=== PATIENT | female | born 1935 | race Caucasian/White ===

== ENCOUNTER 2018-03-01 12:22 | Emergency (ER) | payer OTHER ==
[2018-03-01] MEDS ORDERED: CLINDAMYCIN 600MG/D5W 600 MG/50 ML BAG IV ONE (14:40)
--- NOTE | 2018-03-01 15:03 | ER ---
Nurse's Notes [facility] Name: Jayleen Cross Age: 83 yrs Sex: Female : 1935 Arrival Date: 03/01/2018 Time: 12:26 Bed 26 Private MD: Randy Rutherford E Diagnosis: Acute serous otitis media, left ear;Mastoiditis and related conditions Presentation: 03/01 13:12 Presenting complaint: Patient states: i had been in earlier and found an ear problem, tw2 Dr. Rutherford's PA, he sent me for a scan and they told you to come to the ER for IV antibiotics. Transition of care: patient was not received from another setting of care. Onset of symptoms was March 01, 2018. Risk Assessment: Do you want to hurt yourself or someone else? Patient reports no desire to harm self or others. Initial Sepsis Screen: Does the patient meet any 2 criteria? No. Patient's initial sepsis screen is negative. Does the patient have a suspected source of infection? No. Patient's initial sepsis screen is negative. Care prior to arrival: None. 13:12 Method Of Arrival: Ambulatory tw2 13:12 Acuity: SEBASTIEN 4 tw2 13:12 Acuity: SEBASTIEN 3 tw2 Historical: - Allergies: 13:14 NKA; tw2 - Home Meds: 13:14 lisinopril Oral [Active]; Aspirin Oral [Active]; carvedilol Oral [Active]; Fluoxetine tw2 Oral [Active]; - PMHx: 13:14 Hypertension; tw2 - PSHx: 13:14 D \T\ C; tw2 - Immunization history:: Adult Immunizations up to date. - Social history:: Smoking status: Patient/guardian denies using tobacco. - Ebola Screening: : Patient denies travel to an Ebola-affected area in the 21 days before illness onset. Screenin:17 Abuse screen: Denies threats or abuse. Nutritional screening: No deficits noted. tl3 Tuberculosis screening: No symptoms or risk factors identified. Fall Risk None identified. Assessment: 13:17 General: Appears in no apparent distress. slender, well groomed, well developed, well tl3 nourished, Behavior is calm, cooperative, appropriate for age. Pain: Complains of pain in left ear. Neuro: Level of Consciousness is awake, alert, obeys commands, Oriented to person, place, time, situation, Appropriate for age. Cardiovascular: Patient's skin is warm and dry. Respiratory: Airway is patent Respiratory effort is even, unlabored, Respiratory pattern is regular, symmetrical. GI: No signs and/or symptoms were reported involving the gastrointestinal system. : No signs and/or symptoms were reported regarding the genitourinary system. EENT: Reports seen by PCP Dr Rutherford today had CT scan and called to come to ED for ABX treatment for possible Mastoiditis. Derm: No signs and/or symptoms reported regarding the dermatologic system. 15:23 Reassessment: Patient appears in no apparent distress at this time. No changes from tl3 previously documented assessment. Patient and/or family updated on plan of care and expected duration. Pain level reassessed. Patient is alert, oriented x 3, equal unlabored respirations, skin warm/dry/pink. abx infused without difficulty. Vital Signs: 13:13 BP 170 / 89; Pulse 78; Resp 17; Temp 98.0(O); Pulse Ox 98% ; Pain 0/10; tw2 13:35 BP 168 / 77 RA Sitting (auto/reg); Pulse 65; Resp 18 S; Pulse Ox 98% ; Pain 0/10; jp3 ED Course: 12:26 Patient arrived in ED. mr 12:26 out of town, doctor is Private Physician. mr 12:27 Randy Rutherford MD is Private Physician. mr 13:13 Triage completed. tw2 13:16 Saritha Mcghee, RN is Primary Nurse. tl3 13:17 Patient has correct armband on for positive identification. Bed in low position. Call tl3 light in reach. 13:17 No provider procedures requiring assistance completed. tl3 13:53 Inserted saline lock: 20 gauge in right antecubital area, using aseptic technique. tl3 14:04 Sung Beyer PA is PHCP. jr8 14:04 Ankit Chowdhury MD is Attending Physician. jr8 15:02 Roxy Gil MD is Referral Physician. jr8 15:23 IV discontinued, intact, bleeding controlled, No redness/swelling at site. Pressure tl3 dressing applied. 15:25 Arm band placed on. tl3 Administered Medications: 14:36 Not Given (order changed): Clindamycin 900 mg IVPB once over 30 mins; (mix in 50 mL) tl3 14:37 Drug: Clindamycin 600 mg Route: IVPB; Infused Over: 30 mins; Site: right antecubital; tl3 Delivery: Primary tubing; 15:24 Follow up: IV Status: Completed infusion; IV Intake: 50ml tl3 Intake: 15:24 IV: 50ml; Total: 50ml. tl3 Outcome: 15:02 Discharge ordered by MD. acuna 15:23 Discharged to home ambulatory. tl3 15:23 Condition: stable 15:23 Discharge instructions given to patient, Instructed on discharge instructions, follow up and referral plans. Demonstrated understanding of instructions, follow-up care, medications, Prescriptions given X 1. 15:25 Patient left the ED. tl3 Signatures: Liudmila Barboza Josh, PA PA jr8 Mendy Ch RN RN tw2 Saritha Mcghee RN RN tl3 Ronnie Mariee jp3
--- NOTE | 2018-03-01 15:04 | EDPHYS ---
Physician Documentation [facility] Name: Jayleen Cross Age: 83 yrs Sex: Female : 1935 Arrival Date: 03/01/2018 Time: 12:26 Bed 26 Private MD: Randy Rutherford E ED Physician Ankit Chowdhury HPI: 03/01 15:40 This 83 yrs old Female presents to ER via Ambulatory with complaints of Needs jr8 Antibiotics. 15:40 The patient presents with pain. The complaints affect the left ear. Onset: The jr8 symptoms/episode began/occurred gradually, 2 month(s) ago. Modifying factors: The symptoms are alleviated by nothing, the symptoms are aggravated by nothing. Associated signs and symptoms: The patient has no apparent associated signs or symptoms. Severity of symptoms: At their worst the symptoms were mild in the emergency department the symptoms are unchanged. The patient has not experienced similar symptoms in the past. The patient has been recently seen by a physician:. Patient stated that she has had an ongoing ear infection since this past January. Was sent for CT today to further assess area since she has had antibiotics without resolution. Patient was called and was told she had mastoiditis and to come to ED for one round of antibiotics. Patient denies pain, erythema, or tenderness to post auricular region . Historical: - Allergies: 13:14 NKA; tw2 - Home Meds: 13:14 lisinopril Oral [Active]; Aspirin Oral [Active]; carvedilol Oral [Active]; Fluoxetine tw2 Oral [Active]; - PMHx: 13:14 Hypertension; tw2 - PSHx: 13:14 D \T\ C; tw2 - Immunization history:: Adult Immunizations up to date. - Social history:: Smoking status: Patient/guardian denies using tobacco. - Ebola Screening: : Patient denies travel to an Ebola-affected area in the 21 days before illness onset. ROS: 15:40 Eyes: Negative for injury, pain, redness, and discharge, Neck: Negative for injury, jr8 pain, and swelling, Cardiovascular: Negative for chest pain, palpitations, and edema, Respiratory: Negative for shortness of breath, cough, wheezing, and pleuritic chest pain, Abdomen/GI: Negative for abdominal pain, nausea, vomiting, diarrhea, and constipation, Back: Negative for injury and pain, MS/Extremity: Negative for injury and deformity, Skin: Negative for injury, rash, and discoloration, Neuro: Negative for headache, weakness, numbness, tingling, and seizure. 15:40 ENT: Positive for ear pain, Negative for drainage from ear(s). jr8 Exam: 15:40 Eyes: Pupils equal round and reactive to light, extra-ocular motions intact. Lids and jr8 lashes normal. Conjunctiva and sclera are non-icteric and not injected. Cornea within normal limits. Periorbital areas with no swelling, redness, or edema. Neck: Trachea midline, no thyromegaly or masses palpated, and no cervical lymphadenopathy. Supple, full range of motion without nuchal rigidity, or vertebral point tenderness. No Meningismus. Cardiovascular: Regular rate and rhythm with a normal S1 and S2. No gallops, murmurs, or rubs. Normal PMI, no JVD. No pulse deficits. Respiratory: Lungs have equal breath sounds bilaterally, clear to auscultation and percussion. No rales, rhonchi or wheezes noted. No increased work of breathing, no retractions or nasal flaring. Abdomen/GI: Soft, non-tender, with normal bowel sounds. No distension or tympany. No guarding or rebound. No evidence of tenderness throughout. Back: No spinal tenderness. No costovertebral tenderness. Full range of motion. Skin: Warm, dry with normal turgor. Normal color with no rashes, no lesions, and no evidence of cellulitis. MS/ Extremity: Pulses equal, no cyanosis. Neurovascular intact. Full, normal range of motion. Neuro: Awake and alert, GCS 15, oriented to person, place, time, and situation. Cranial nerves II-XII grossly intact. Motor strength 5/5 in all extremities. Sensory grossly intact. Cerebellar exam normal. Normal gait. 15:40 ENT: External ear(s): are unremarkable, Ear canal(s): are normal, clear, TM's: fluid levels, on the left, dark serous fluid noted behind the ear. TM translucent and without erythema . Vital Signs: 13:13 BP 170 / 89; Pulse 78; Resp 17; Temp 98.0(O); Pulse Ox 98% ; Pain 0/10; tw2 13:35 BP 168 / 77 RA Sitting (auto/reg); Pulse 65; Resp 18 S; Pulse Ox 98% ; Pain 0/10; jp3 MDM: 14:04 Patient medically screened. jr8 15:01 Data reviewed: vital signs, nurses notes, diagnostic data from outside facility, and as jr8 a result, I will discharge patient. Data interpreted: Pulse oximetry: on room air is 98 %. Interpretation: normal. Counseling: I had a detailed discussion with the patient and/or guardian regarding: the historical points, exam findings, and any diagnostic results supporting the discharge/admit diagnosis, radiology results, the need for outpatient follow up, an ENT specialist, to return to the emergency department if symptoms worsen or persist or if there are any questions or concerns that arise at home. 15:40 ED course: Dr. Gil called and left message to call back. Recommended patient f/u jr8 with Dr. Gil for persistent otitis media. On physical exam no external signs of mastoiditis . Administered Medications: 14:36 Not Given (order changed): Clindamycin 900 mg IVPB once over 30 mins; (mix in 50 mL) tl3 14:37 Drug: Clindamycin 600 mg Route: IVPB; Infused Over: 30 mins; Site: right antecubital; tl3 Delivery: Primary tubing; 15:24 Follow up: IV Status: Completed infusion; IV Intake: 50ml tl3 Disposition: 03/01/18 15:02 Discharged to Home. Impression: Acute serous otitis media, left ear, Mastoiditis and related conditions. - Condition is Stable. - Discharge Instructions: Otitis Media, Adult. - Prescriptions for Clindamycin HCl 300 mg Oral Capsule - take 1 capsule by ORAL route every 6 hours for 10 days; 40 capsule. - Medication Reconciliation Form, Thank You Letter, Antibiotic Education, Prescription Opioid Use form. - Follow up: Roxy Gil MD; When: 5 - 6 days; Reason: Recheck today's complaints, Continuance of care, Re-evaluation by your physician. - Problem is new. - Symptoms have improved. Addendum: 03/08/2018 08:51 Co-signature as Attending Physician, Ankit Chowdhury MD I agree with the assessment and k dr plan of care. Signatures: Ankit Chowdhury MD MD [facility] Sung Beyer PA PA jr8 Mendy Ch RN RN tw2 Saritha Mcghee, RN RN tl3 Corrections: (The following items were deleted from the chart) 03/01 15:25 15:02 03/01/2018 15:02 Discharged to Home. Impression: Acute serous otitis media, left tl3 ear; Mastoiditis and related conditions. Condition is Stable. Forms are Medication Reconciliation Form, Thank You Letter, Antibiotic Education, Prescription Opioid Use. Follow up: Roxy Gil; When: 5 - 6 days; Reason: Recheck today's complaints, Continuance of care, Re-evaluation by your physician. Problem is new. Symptoms have improved. jr8
[2018-03-01 15:53] VITALS: TEMP 98; O2SAT 98
[2018-03-01 15:55] VITALS: BP 168/77
== END 2018-03-01 15:25 | disposition home or self-care (01) ==
LOC: ER 12:22
DX: H65.02 Acute serous otitis media, left ear (principal); H70.92 Unspecified mastoiditis, left ear; I10 Essential (primary) hypertension
CPT/HCPCS: 96365; 99283

== ENCOUNTER 2019-10-09 13:54 | Emergency (ER) | payer OTHER ==
[2019-10-09 14:55] LABS: Absolute Lymphocytes (CBC) 0.6 K/uL (0.7-4.9); Basophils % 0.1 % (0-1.3); Hematocrit 36.7 % (36.0-45.0); Lymphocytes % 1.9 % (15.3-44.8); RBC Red Blood Cell Count 4.58 M/uL (3.86-4.86)
[2019-10-09 15:17] LABS: Blood Morphology Comment NOT SEEN (NOT SEEN); Platelet Estimate ADEQ
[2019-10-09] MEDS ORDERED: NA CHLORIDE 0.9% 1,000 ML ONE ×3 (15:20→19:45)
[2019-10-09] MEDS ORDERED: ONDANSETRON 4 MG/2 ML VIAL ONE (15:20)
[2019-10-09 15:29] LABS: Albumin 2.8 g/dL (3.4-5.0); Bilirubin Direct 0.2 mg/dL (0-0.2); Bilirubin Total 0.7 mg/dL (0.2-1.0); Potassium 3.5 mmol/L (3.5-5.1); Protein, Total 7.5 g/dL (6.4-8.2)
--- NOTE | 2019-10-09 16:40 | RAD REPORT ---
EXAM DESCRIPTION: CT - Abdomen Pelvis Wo Contrast - 10/09/2019 4:13 pm CLINICAL HISTORY: Abdominal pain COMPARISON: none TECHNIQUE: Computed axial tomography of the abdomen and pelvis was obtained. IV and oral contrast we re not requested. All CT scans are performed using dose optimization technique as appropriate and may include automated exposure control or mA/KV adjustment according to patient size. FINDINGS: The evaluation of solid organs, vessels and bowel is limited secondary to the lack of con trast administration. Low-density hepatic lesions nonspecific without IV contrast probably cysts. Spleen, pancreas, adrenals and kidneys appear grossly normal. Air is present within the endometrium which extends towards the periphery of the uterus. There is ill -defined air which abuts the uterus and and cervix extends into right adnexal. Small amount of fluid is also present. A right inguinal hernia contains small bowel. There is mild dilatation of jejunum and most of ileum. There is no evidence of diverticulitis. IMPRESSION: Given the history of recent uterine instrumentation these findings may indicate a uterin e perforation. Mild dilatation of most of small bowel may be secondary to an obstruction in the region of the left i nguinal hernia
[2019-10-09] MEDS ORDERED: PIPER/TAZO/NS 3.375gm 3.375 GM/100 ML BAG ONE (16:48)
--- NOTE | 2019-10-09 16:59 | EDPHYS ---
Physician Documentation [facility] Name: Jayleen Cross Age: 84 yrs Sex: Female : 1935 Arrival Date: 10/09/2019 Time: 13:58 Bed 14 Private MD: ED Physician Jae Jama HPI: 10/08 15:09 This 84 yrs old Female presents to ER via Wheelchair with complaints of jr8 Vomiting. 15:09 The patient presents to the emergency department with nausea, vomiting. Onset: The jr8 symptoms/episode began/occurred acutely, yesterday. Possible causes: unknown. The symptoms are aggravated by nothing. The symptoms are alleviated by nothing. Associated signs and symptoms: The patient has no apparent associated signs or symptoms. Severity of symptoms: At their worst the symptoms were moderate in the emergency department the symptoms are unchanged. The patient has not experienced similar symptoms in the past. The patient has been recently seen by a physician:. Patient stated that she had cervical biopsy on Monday of this week. Has had some mild discomfort since then but now started to have multiple episodes of nausea and vomiting. Historical: - Allergies: 14:06 Codeine; ll1 - PMHx: 14:06 Hypertension; ll1 - PSHx: 14:06 D \T\ C; ll1 - Immunization history:: Flu vaccine is up to date. - Social history:: Smoking status: Patient denies any tobacco usage or history of. Patient/guardian denies using alcohol, street drugs. ROS: 15:09 Eyes: Negative for injury, pain, redness, and discharge, ENT: Negative for injury, jr8 pain, and discharge, Neck: Negative for injury, pain, and swelling, Cardiovascular: Negative for chest pain, palpitations, and edema, Respiratory: Negative for shortness of breath, cough, wheezing, and pleuritic chest pain, Back: Negative for injury and pain, MS/Extremity: Negative for injury and deformity, Skin: Negative for injury, rash, and discoloration, Neuro: Negative for headache, weakness, numbness, tingling, and seizure. 15:09 Abdomen/GI: Positive for nausea and vomiting, abdominal cramps, Negative for diarrhea. Exam: 15:09 Eyes: Pupils equal round and reactive to light, extra-ocular motions intact. Lids and jr8 lashes normal. Conjunctiva and sclera are non-icteric and not injected. Cornea within normal limits. Periorbital areas with no swelling, redness, or edema. ENT: Nares patent. No nasal discharge, no septal abnormalities noted. Tympanic membranes are normal and external auditory canals are clear. Oropharynx with no redness, swelling, or masses, exudates, or evidence of obstruction, uvula midline. Mucous membranes moist. Neck: Trachea midline, no thyromegaly or masses palpated, and no cervical lymphadenopathy. Supple, full range of motion without nuchal rigidity, or vertebral point tenderness. No Meningismus. Cardiovascular: Regular rate and rhythm with a normal S1 and S2. No gallops, murmurs, or rubs. Normal PMI, no JVD. No pulse deficits. Respiratory: Lungs have equal breath sounds bilaterally, clear to auscultation and percussion. No rales, rhonchi or wheezes noted. No increased work of breathing, no retractions or nasal flaring. Abdomen/GI: Soft, non-tender, with normal bowel sounds. No distension or tympany. No guarding or rebound. No evidence of tenderness throughout. Back: No spinal tenderness. No costovertebral tenderness. Full range of motion. Skin: Warm, dry with normal turgor. Normal color with no rashes, no lesions, and no evidence of cellulitis. MS/ Extremity: Pulses equal, no cyanosis. Neurovascular intact. Full, normal range of motion. Neuro: Awake and alert, GCS 15, oriented to person, place, time, and situation. Cranial nerves II-XII grossly intact. Motor strength 5/5 in all extremities. Sensory grossly intact. Cerebellar exam normal. Normal gait. 20:04 ECG was reviewed by the Attending Physician. [facility] Vital Signs: 14:04 BP 129 / 62; Pulse 88; Resp 18; Temp 98.3; Pulse Ox 97% ; Weight 67.59 kg; Height 5 ft. ll1 4 in. (162.56 cm); Pain 8/10; 15:31 BP 121 / 48; Pulse 82; Resp 16; Pulse Ox 99% on R/A; Pain 5/10; ls4 17:47 BP 121 / 48; Pulse 79; Resp 16; Pulse Ox 99% on R/A; Pain 0/10; ls4 19:00 BP 120 / 72; Pulse 149; Resp 30; Pulse Ox 99% on R/A; Pain 0/10; ls4 21:00 BP 127 / 52; Pulse 129; Resp 18; Pulse Ox 99% on R/A; ls4 21:30 BP 128 / 75; Pulse 124; Resp 18; Pulse Ox 99% on R/A; Pain 0/10; ls4 21:39 Pulse 115; Resp 16; Pulse Ox 99% on R/A; Pain 0/10; ls4 14:04 Body Mass Index 25.58 (67.59 kg, 162.56 cm) ll1 Procedures: 19:55 Central Line: the site was prepped with Betadine, in sterile fashion, a triple lumen shayy catheter was inserted, in the right femoral vein, in 1 attempts. placement was verified, by blood return, the site was dressed with using sterile technique, the patient tolerated the procedure, well. MDM: 14:27 Patient medically screened. jr8 15:37 Data reviewed: vital signs, nurses notes, lab test result(s), radiologic studies, CT jr8 scan. Data interpreted: Pulse oximetry: on room air is 99 %. Interpretation: normal. Counseling: I had a detailed discussion with the patient and/or guardian regarding: the historical points, exam findings, and any diagnostic results supporting the discharge/admit diagnosis, lab results, radiology results, the need for further work-up and treatment in the hospital. 20:02 Differential diagnosis: pancreatitis, appendicitis, diverticulitis, gastroenteritis. shayy Test interpretation: by ED physician or midlevel provider: ECG, plain radiologic studies. ED course: pt with acute abdomen, perforation of darvin. arf, a fib with rvr,upper gi bleed, leukocytosis. 10/08 14:28 Order name: Basic Metabolic Panel; Complete Time: 15:32 jr8 10/08 14:28 Order name: CBC with Diff; Complete Time: 15:23 jr8 10/08 14:28 Order name: Hepatic Function; Complete Time: 15:32 jr8 10/08 14:28 Order name: Lipase; Complete Time: 15:32 jr8 10/08 15:17 Order name: Manual Differential; Complete Time: 15:23 EDMS 10/08 17:09 Order name: Urine Microscopic Only; Complete Time: 18:24 ls4 10/08 18:59 Order name: Magnesium; Complete Time: 19:57 shayy 10/08 18:59 Order name: NT PRO-BNP; Complete Time: 19:57 [facility] 10/08 18:59 Order name: PT-INR; Complete Time: 06:38 [facility] 10/08 18:59 Order name: Troponin (emerg Dept Use Only); Complete Time: 19:57 [facility] 10/08 19:18 Order name: TSH; Complete Time: 19:57 [facility] 10/08 19:50 Order name: Type And Screen; Complete Time: 06:38 ls4 10/08 20:47 Order name: ABO/RH no charge; Complete Time: 06:38 EDMD 10/08 15:59 Order name: Abdomen ; Complete Time: 16:46 [facility] 10/08 18:59 Order name: XRAY Chest (1 view); Complete Time: 06:38 [facility] 10/08 14:28 Order name: IV Saline Lock; Complete Time: 15:04 [facility] 10/08 14:28 Order name: Labs collected and sent; Complete Time: 15:04 [facility] 10/08 14:30 Order name: Urine Dipstick-Ancillary (obtain specimen); Complete Time: 17:10 [facility] 10/08 16:20 Order name: NG Tube; Complete Time: 16:27 [facility] 10/08 18:59 Order name: IV Saline Lock - Large Bore; Complete Time: 20:09 [facility] 10/08 18:59 Order name: EKG; Complete Time: 19:00 [facility] 10/08 18:59 Order name: Cardiac monitoring; Complete Time: 19:02 [facility] 10/08 18:59 Order name: EKG - Nurse/Tech; Complete Time: 19:02 [facility] 10/08 18:59 Order name: O2 Per Protocol; Complete Time: 20:09 [facility] 10/08 18:59 Order name: O2 Sat Monitoring; Complete Time: 20:09 [facility] 10/08 19:00 Order name: Faulkner; Complete Time: 20:09 [facility] EC:04 Rate is 147 beats/min. Rhythm is irregularly irregular. QRS [place] is Normal. OK interval shayy is normal. QRS interval is normal. QT interval is normal. No Q waves. T waves are Normal. No ST changes noted. Clinical impression: Atrial Fibrillation. Interpreted by me. Reviewed by me. Administered Medications: 15:10 Drug: NS 0.9% 1000 ml Route: IV; Rate: 1000 ml; Site: right antecubital; ls4 15:10 Drug: Zofran (Ondansetron) 4 mg Route: IVP; Site: right antecubital; ls4 15:15 Follow up: Response: No adverse reaction; Marked relief of symptoms ls4 16:59 Drug: Zosyn 3.375 grams Route: IVPB; Infused Over: 60 mins; Site: right antecubital; ls4 17:49 Drug: NS 0.9% 1000 ml Route: IV; Rate: 100 ml/hr; Site: right antecubital; ls4 19:06 Drug: NS 0.9% 1000 ml Route: IV; Rate: 1 bolus; Site: right antecubital; ls4 19:19 Drug: Digoxin 0.5 mg Route: IVP; Site: right antecubital; ls4 19:19 Drug: Lopressor 2.5 mg Route: IVP; Site: right antecubital; ls4 19:24 Drug: Lopressor 2.5 mg Route: IVP; Site: right antecubital; ls4 19:29 Drug: Lopressor 2.5 mg Route: IVP; Site: right antecubital; ls4 20:00 Drug: ProTONIX 80 mg Route: IVP; Site: left antecubital; ls4 20:39 Follow up: Response: No adverse reaction; Marked relief of symptoms ls4 20:00 Drug: ProTONIX 8 mg/hr Route: IV; Rate: 25 ml/hr; Site: left antecubital; ls4 20:15 Drug: Flagyl 500 mg Volume: 100 ml; Route: IVPB; Rate: 200 ml/hr; Infused Over: 30 ls4 mins; Site: right antecubital; Disposition: 19:57 Co-signature as Attending Physician, Jae Jama MD I agree with the assessment and shayy plan of care. Disposition: 10/09/19 20:02 Transfer ordered to [facility]. Diagnosis are Abdominal tenderness, Elevated white blood cell count, Acute kidney failure, Gastrointestinal hemorrhage, unspecified - upper, Other intestinal obstruction - sbo, Inguinal hernia - left, Atrial fibrillation and flutter - with rvr, Perforation of intestine (nontraumatic). - Reason for transfer: Higher level of care. - Accepting physician is to [facility], [facility], [facility]. - Condition is Serious. - Problem is new. - Symptoms have improved. Critical care time excluding procedures: 21:05 Critical care time: Bedside Care: 45 minutes. Total time: 45 minutes shayy 21:05 Critical care time: Bedside Care: 45 minutes, Consultation: 15 minutes, Family shayy Intervention: 5 minutes. Total time: 65 minutes Signatures: Dispatcher [employer] Jae Lebron MD MD cha Mickail, Joel, PA PA jmm Roszak, Josh, PA PA jr8 Farrah Haji RN RN ls4 Leonidas Marino RN RN ll1 Corrections: (The following items were deleted from the chart) 15:59 15:24 Abdomen Pelvis W Con+CT.RAD.BRZ ordered. [facility] EDMD 19:58 16:59 Hospitalization Ordered by Young Pereyra MD for Inpatient Admission. Preliminary [facility] diagnosis is Acute kidney failure; Small bowel obstruction; Acute abdomen; Uterine Performation . Bed requested for Intensive Care Unit. Status is Inpatient Admission. Condition is Fair. Problem is new. Symptoms have improved. jr8 21:00 18:57 CORONAVIRUS+MR.LAB.BRZ ordered. [facility] 21:46 20:02 10/09/2019 20:02 Transfer ordered to [facility]. ls4 Diagnosis is Abdominal tenderness; Elevated white blood cell count; Acute kidney failure; Gastrointestinal hemorrhage, unspecified - upper; Other intestinal obstruction - sbo; Inguinal hernia - left; Atrial fibrillation and flutter - with rvr; Perforation of intestine (nontraumatic). Reason for transfer: Higher level of care. Accepting physician is to [facility], [facility]. Condition is Serious. Problem is new. Symptoms have improved. shayy
--- NOTE | 2019-10-09 16:59 | ER ---
Nurse's Notes [facility] Name: Jayleen Cross Age: 84 yrs Sex: Female : 1935 Arrival Date: 10/09/2019 Time: 13:58 Bed 14 Private MD: Diagnosis: Abdominal tenderness;Elevated white blood cell count;Acute kidney failure;Gastrointestinal hemorrhage, unspecified-upper;Other intestinal obstruction-sbo;Inguinal hernia-left;Atrial fibrillation and flutter-with rvr;Perforation of intestine (nontraumatic) Presentation: 10/08 14:04 Chief complaint: Patient states: N/V began last night. Had biopsy with Dr. Potts ll1 Monday, Dr. Potts sent her in for eval. Coronavirus screen: Client denies travel out of the [place] in the last 14 days. At this time, the client does not indicate any symptoms associated with coronavirus-19. Ebola Screen: Patient denies travel to an Ebola-affected area in the 21 days before illness onset. Initial Sepsis Screen: Does the patient meet any 2 criteria? No. Patient's initial sepsis screen is negative. Risk Assessment: Do you want to hurt yourself or someone else? Patient reports no desire to harm self or others. Onset of symptoms was October 08, 2019. 14:04 Method Of Arrival: Wheelchair ll1 14:04 Acuity: SEBASTIEN 3 ll1 14:19 Initial Sepsis Screen: Does the patient have a suspected source of infection? No. ls4 Patient's initial sepsis screen is negative. Triage Assessment: 14:18 General: Appears in no apparent distress. Behavior is calm, cooperative. Pain: Denies ls4 pain. GI: No deficits noted. Historical: - Allergies: 14:06 Codeine; ll1 - PMHx: 14:06 Hypertension; ll1 - PSHx: 14:06 D \T\ C; ll1 - Immunization history:: Flu vaccine is up to date. - Social history:: Smoking status: Patient denies any tobacco usage or history of. Patient/guardian denies using alcohol, street drugs. Screenin:12 Abuse screen: Denies threats or abuse. Denies injuries from another. Nutritional ls4 screening: No deficits noted. Tuberculosis screening: No symptoms or risk factors identified. Fall Risk None identified. Assessment: 15:05 GI: Abdomen is non-distended. ls4 Vital Signs: 14:04 BP 129 / 62; Pulse 88; Resp 18; Temp 98.3; Pulse Ox 97% ; Weight 67.59 kg; Height 5 ft. ll1 4 in. (162.56 cm); Pain 8/10; 15:31 BP 121 / 48; Pulse 82; Resp 16; Pulse Ox 99% on R/A; Pain 5/10; ls4 17:47 BP 121 / 48; Pulse 79; Resp 16; Pulse Ox 99% on R/A; Pain 0/10; ls4 19:00 BP 120 / 72; Pulse 149; Resp 30; Pulse Ox 99% on R/A; Pain 0/10; ls4 21:00 BP 127 / 52; Pulse 129; Resp 18; Pulse Ox 99% on R/A; ls4 21:30 BP 128 / 75; Pulse 124; Resp 18; Pulse Ox 99% on R/A; Pain 0/10; ls4 21:39 Pulse 115; Resp 16; Pulse Ox 99% on R/A; Pain 0/10; ls4 14:04 Body Mass Index 25.58 (67.59 kg, 162.56 cm) ll1 ED Course: 13:58 Patient arrived in ED. mr 14:05 Triage completed. ll1 14:06 Arm band placed on Patient placed in an exam room, on a stretcher. ll1 14:06 Patient has correct armband on for positive identification. Bed in low position. Call ls4 light in reach. Side rails up X 1. sheet sorter on. Pulse ox on. NIBP on. 14:11 Farrah Haji, AMY is Primary Nurse. ls4 14:27 Sung Beyer PA is PHCP. jr8 14:27 Ankit Chowdhury MD is Attending Physician. jr8 14:30 No provider procedures requiring assistance completed. Inserted saline lock: 20 gauge ls4 in right antecubital area, using aseptic technique. Blood collected. 14:30 Initial lab(s) drawn, by de, sent to lab. Patient maintains SpO2 saturation greater ls4 than 95% on room air. 16:13 Abdomen In Process Unspecified. EDMS 16:57 Young Pereyra MD is Hospitalizing Provider. jr8 18:53 Attending Physician role handed off by Ankit Chowdhury MD shayy 18:53 Jae Jama MD is Attending Physician. shayy 19:08 Inserted saline lock: 18 gauge in left antecubital area, using aseptic technique. ls4 19:10 NGT: inserted 14 Fr. via left nare. ls4 19:55 XRAY Chest (1 view) In Process Unspecified. EDMS Administered Medications: 15:10 Drug: NS 0.9% 1000 ml Route: IV; Rate: 1000 ml; Site: right antecubital; ls4 15:10 Drug: Zofran (Ondansetron) 4 mg Route: IVP; Site: right antecubital; ls4 15:15 Follow up: Response: No adverse reaction; Marked relief of symptoms ls4 16:59 Drug: Zosyn 3.375 grams Route: IVPB; Infused Over: 60 mins; Site: right antecubital; ls4 17:49 Drug: NS 0.9% 1000 ml Route: IV; Rate: 100 ml/hr; Site: right antecubital; ls4 19:06 Drug: NS 0.9% 1000 ml Route: IV; Rate: 1 bolus; Site: right antecubital; ls4 19:19 Drug: Digoxin 0.5 mg Route: IVP; Site: right antecubital; ls4 19:19 Drug: Lopressor 2.5 mg Route: IVP; Site: right antecubital; ls4 19:24 Drug: Lopressor 2.5 mg Route: IVP; Site: right antecubital; ls4 19:29 Drug: Lopressor 2.5 mg Route: IVP; Site: right antecubital; ls4 20:00 Drug: ProTONIX 80 mg Route: IVP; Site: left antecubital; ls4 20:39 Follow up: Response: No adverse reaction; Marked relief of symptoms ls4 20:00 Drug: ProTONIX 8 mg/hr Route: IV; Rate: 25 ml/hr; Site: left antecubital; ls4 20:15 Drug: Flagyl 500 mg Volume: 100 ml; Route: IVPB; Rate: 200 ml/hr; Infused Over: 30 ls4 mins; Site: right antecubital; Outcome: 16:59 Decision to Hospitalize by Provider. jr8 20:02 ER care complete, transfer ordered by . shayy 21:46 Patient left the ED. ls4 Addendum: 18:52 Addendum: Other initiated transfer to [facility] spoke to Saritha Vázquez. m w2 19:56 Addendum: Other pt Accepted to [facility]. Admin approval given by Saritha Vázquez. m w2 Accepted by Dr. Cooley. Signatures: Dispatcher [employer] Jae Lebron MD MD cha Rivera, Liudmila mr Sung Beyer PA PA 8 Raul Jarquin 2 Farrah Haji RN RN ls4 Leonidas Marino RN RN ll1
[2019-10-09 17:58] LABS: Urine Amorphous Sediment 1+ /HPF (NONE SEEN); Urine Bacteria <20 /HPF (<20); Urine Culture Reflex Order NOT NEEDED; Urine Mucus 4+ /HPF (NONE SEEN); Urine RBC <5 /HPF (NONE SEEN)
[2019-10-09] MEDS ORDERED: METRONIDAZOLE 500mg IVPB 500 MG/100 ML BAG IV ONE (19:20)
[2019-10-09] MEDS ORDERED: METOPROLOL TARTRATE 5 MG/5 ML INJ IV ONE (19:29)
[2019-10-09] MEDS ORDERED: DIGOXIN 0.25 MG/ML AMP ONE (19:29)
[2019-10-09 19:41] LABS: NT PRO-BNP 10283 pg/mL (<450); Troponin (Emerg Dept Use Only) < 0.02 ng/mL (0.0-0.045)
[2019-10-09] MEDS ORDERED: PANTOPRAZOLE 40 MG INJ ONE ×2 (19:45→19:47)
[2019-10-09] MEDS ORDERED: NA CHLORIDE 0.9% 250 ML ONE (19:45)
[2019-10-09 20:17] LABS: Protime INR 1.47
--- NOTE | 2019-10-09 20:56 | RAD REPORT ---
EXAM DESCRIPTION: RAD - Chest Single View - 10/09/2019 7:55 pm CLINICAL HISTORY: Device placement nasogastric tube placement IMPRESSION: A nasogastric tube is coiled within the stomach. The tip lies near the junction of the g astric body and fundus
--- NOTE | 2019-10-10 01:05 | CON ---
Date of Consultation: 10/09/2019 This is an emergency consult in the ER. History Of Present Illness: This is the case of an 84-year-old patient who just recently was seen in the ER today after complaining of abdominal pain. During the workup, the patient found to have what could be a perforation of the uterus and based on the history about 48 hours ago, she had a gynecolo gical intervention in one of the local farm implement engine mechanic and they could not rule out perforation during th e procedure and since we have the patient with abdominal pain, they called me to make sure the intest sidney are not involved since cannot be rule out. During the process also, the patient was found to tobin ve a right inguinal hernia, but the main concern right now are the findings from the area next to the uterus, moving the uterus to the side and when I discussed that with the radiologist, they believe i t is a perforation of the uterus. The patient states that after the procedure, she was doing okay, a lthough she started to have some pain after that. She did not look for medical attention until today when she comes to the ER and the findings were discussed with her. Apparently, she was doing a biop sy of the uterus due to a bleeding and the possibility of cancer has not been ruled out yet. Past Medical History: Include hypertension. Past Surgical History: Include D and C. Allergies: CODEINE. Family History: Noncontributory. Review of Systems: The patient states some right and pelvic abdominal pain. No fever. The patient is abdomi nal cramps with no diarrhea. No melena. Physical Examination: General: The patient is awake, alert. HEENT: Pupils are equal and reactive, anicteric. Neck: Supple. Chest: Clear. Abdomen: Lower abdominal tenderness, right and left mainly in the pelvic area. Upper abdomen soft a nd depressible. Rectal: Deferred. Pelvic: Per [employer]. Extremities: Good capillary refill. Laboratory Data: WBC count of 32.7, hemoglobin of 12. Imaging: CAT scan of the abdomen and pelvis. I saw the films and discussed them personally with Dr. Alvares, the radiologist. He claimed there is a large amount of air present within the endometrium which extends toward the periphery of the uterus. The ill-defined air moved the uterus to side about the uterus and cervix and extending to the right adnexa with some fluid around the area consistent w ith the uterine perforation when history recent of that. The patient also had a right ing uinal hernia, some diverticula with no diverticulitis. Spleen, pancreas, kidney within normal limits . Assessment: This is an 84-year-old patient with air around the uterus. That air is within the endom etrium, moved the uterus to the side, still there is a large amount of air that also extending to the cervix and right adnexa. So from a surgical standpoint adding that to the WBC count, I believe this patient will need an exploration. I discussed the case with Gynecology and I have no problems going there and basically trying to address the issue, but I need a farm implement engine mechanic there since the complicat ion and they said the uterus is full of air and the endometrium. I have to make sure that no emergen t hysterectomy have to be done, so I am willing to do the procedure with the farm implement engine mechanic present. T he OR is available here right now. Dr. Potts kindly came and took a look at her patient and she kinjal jasmine the patient will be better served from the gynecological standpoint in [place], not here. On those conditions then after that, I still provided my services from a general standpoint. If the in testines are involved in this situation, we should be able to address that issue. The gynecological standpoint will be addressed by the farm implement engine mechanic either here or in the institution that they feel is safer and I agree with her decision of transferring the patient out since she feels better that way. AUNDREA/REJI Voice ID: [id number] Report ID: [id number]
--- NOTE | 2019-10-10 07:08 | CON ---
Date of Consultation: 10/09/2019 Consultation done for severe nausea, vomiting, possible uterine perforation and acute abdominal pain. History Of Present Illness: The patient is 84-year-old with a significant stage III incomplete utero vaginal prolapse. She presented with postmenopausal bleeding and complaints of worsening prolapse to my office on September 17. She had undergone transvaginal ultrasound for evaluation of her postmenop ausal bleeding. The endometrial thickness was 2.7 cm and had a heterogeneous very thick appearance. On discussion with the patient about the results last week, discussed about the possibility of endom etrial tumor, mass could be malignant or an old fibroid. For evaluation, she was recommended to have endometrial sampling, so she was brought into the office on Monday for hysteroscopy and D and C. Af ter this procedure, the patient was discharged home, she was feeling well and her pain was moderate. So, once this was done, on postop day #1, I received a call from her son regarding pain medication t hat needed to be taken that she would prefer to have hydrocodone because she had codeine allergy, so she took the remaining hydrocodone from her dental procedure and did well. No fever or chills. Late r this morning got a call from him with nausea and vomiting and asking for Phenergan. At this time, I have referred the patient to the ER for ruling out uterine perforation, possible bowel injury or an y other bowel pathology that could be going on for the acute pain and nausea, vomiting, and GI sympto ms. After the patient was evaluated in the ER, she continues to have pain, points mostly to the right low er quadrant. Then, she complained of not feeling well, but no other obvious urinary tract symptoms o r bowel symptoms. No upper respiratory symptoms. Past Medical History: Hypertension, anxiety, depression. Past Surgical History: D and C in 1969. Obstetric History: 3, para 3, all vaginal deliveries. 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 In the past 6 months, she felt the worsening o f the prolapse. She was using a pessary in the past and that pulp mill supervisor was not practicing any lacey mahogany and in the past 6 months, she has not used the pessary, so she came to me for consultation on pro lapse management. She also had complaints of urinary leakage. Social History: No tobacco, alcohol or drug use. Her recently. Allergies: CODEINE CAUSES NAUSEA AND DIZZINESS. Medications: Carvedilol 6.25 mg daily, mg b.i.d., lisinopril 10 mg daily, oxybutynin 5 mg , sertraline 100 mg daily, and hydrocodone, acetaminophen and amoxicillin for her dental work, which she had last month. She was off amoxicillin, but taking hydrocodone as needed. Physical Examination: Vital Signs: Temperature of 98.3, pulse 88 and then later 143, blood pressure of 129/62, respiratory rate of 18, 97% on room air. General: Today, she was extremely dehydrated, anxious. Memory slightly appeared to be impaired and some memory loss. No acute distress. The patient is lying on her bed. Abdomen: Softly distended, tender with rebound in the right lower quadrant. No vaginal bleeding. P elvic exam not performed at this time. Laboratory Data: The white cell count was 32,000 and the left shift 96% neutrophils. Her creatinine 2.69 and glucose 108, BUN 47, GFR is 17. There was 5% bandemia. On the CAT scan, the impression wa s mild dilatation of the small bowel loops, may be secondary to an obstruction in the region of the i nguinal hernia, possibly a right inguinal hernia by the images. There is air present within the endo metrium which extends towards the periphery of the uterus which is ill-defined air and it abuts the u terus and the cervix and extends into the right adnexal region. No evidence of any diverticulitis or bowel process that could be easily discerned. Assessment And Plan: 1.Abdominal pain, rule out peritonitis due to the acute abdominal signs and symptoms. The concern f or bowel injury after uterine perforation for endometrial sampling. General surgery consult was kamryn tapia. Dr. Ribeiro had seen the patient, he was uncomfortable taking the patient to the OR without g ynecological support if there was a gynecological process that was involved with the bowel process wh ich could be taken care off here. Originally, the concern was that there could be a uterine mass or endometrial mass. If there was a malignancy, this would be out of the realm of management for me per sonally as I am not a gynecological oncologist. With given the bandemia and a high white cell count and the peritoneal signs, she probably needs both gynecological and general surgical care together, s o the patient is being transferred to [facility] in [place]. Dr. Bob Cooley has accepted the tra nsfkem who is a gynecological oncologist. A general surgeon was called through the transfer center, w ho did not feel comfortable taking care of this patient without a pulp mill supervisor and so this has been a rranged. 2.The patient with atrial fibrillation, likely new in onset. This is being taken care of as well. 3.Dehydration, nausea, vomiting, most likely from dehydration. She is being hydrated. She has a Fo darinel catheter and the patient is hemodynamically stable at this time and her daughter has been called and updated on the situation about the possible etiologies that we are working on at this time. She understood why the patient was being transferred and the concern about uterine perforation, possible uterine mass and possible bowel injury. 4.The patient also has a right inguinal hernia. 5.I will update the family as I know about the transfer, but at this time, the patient is stable and is held in the ER. YULIA/REJI Voice ID: [id number] Report ID: [id number]
--- NOTE | 2019-10-11 11:15 | EKG ---
Test Date: 2019-10-09 Test Time: 19:00:39 Printing Engineer: HB MEASUREMENT RESULTS: Intervals: Rate: 143 IN: QRSD: 138 QT: 358 QTc: 552 [place]: P: IN: QRS: 20 T: 190 INTERPRETIVE STATEMENTS: Wide QRS tachycardia with frequent and consecutive premature ventricular complexes and fusion complexes Left bundle branch block Abnormal ECG Compared to ECG 04/25/2016 07:43:35 Fusion complex(es) now present Ventricular premature complex(es) now present Wide-QRS tachycardia now present Left bundle-branch block now present Sinus rhythm no longer present Electronically Signed On 10-11-19 11:10:43 CDT by Tony Dykes
[2019-10-11 22:40] VITALS: O2SAT 99
[2019-10-11 22:41] VITALS: TEMP 98.3
[2019-10-11 22:47] VITALS: BP 128/75
== END 2019-10-09 21:46 | disposition short-term general hospital (02) ==
LOC: ER 13:54
PROC: 06HY33Z Insertion of Infusion Device into Lower Vein, Percutaneous Approach (ICD-10-PCS; principal; 2019-10-09)
PROC: 0T9B70Z Drainage of Bladder with Drainage Device, Via Natural or Artificial Opening (ICD-10-PCS; 2019-10-09)
DX: K63.1 Perforation of intestine (nontraumatic) (principal); N17.9 Acute kidney failure, unspecified; K92.2 Gastrointestinal hemorrhage, unspecified; K56.609 Unspecified intestinal obstruction, unspecified as to partial versus complete obstruction; K40.90 Unilateral inguinal hernia, without obstruction or gangrene, not specified as recurrent; I48.20 Chronic atrial fibrillation, unspecified; D72.829 Elevated white blood cell count, unspecified; Z88.0 Allergy status to penicillin
CPT/HCPCS: 93005; 85025; 80048; 36415; 86900; 83735; 86850; 85610; 86901; 80076; 84443; 81015; 84484; 83690; 83880; 74176; 71045; 96375; 96374; 99285; 36569; 51702; J1160; C9113 ×2; J2543; J7050; J7030 ×3; J2405